=== PATIENT | female | born 1995 | race Caucasian/White ===

== ENCOUNTER 2017-01-03 07:35 | Emergency (ER) | payer BC ==
--- NOTE | 2017-01-03 08:01 | UC ---
FLU HPI - HPI Summary HPI Summary: cough, fever, ST, can't take a deep breath without coughing. Hx asthma, has been using her inhaler more than usual. States she can't take prednisone, that it messes up her periods and makes her bleed more. States she has been using her steroid inhaler as directed. Did not get a flu shot this year. - History of Current Complaint Chief Complaint: UCRespiratory Stated Complaint: SINUS/FEVER/SORE THROAT Time Seen by Provider: 01/03/17 07:50 Hx Obtained From: Patient Hx Last Menstrual Period: ~12/10/16 ?: No Onset/Duration: Sudden Onset, Lasting Hours, Still Present Severity Currently: Severe Severity Initially: Moderate Pain Intensity: 4 Pain Scale Used: 0-10 Numeric Associated Signs & Symptoms: Positive: Fever, Myalgia, Cough, Sore Throat, Nasal Congestion, Headache - Risk Factors Influenza Risk Factors: Chronic Medical or Immunosuppresive Condition - asthma - Allergy/Home Medications Allergies/Adverse Reactions: Allergies Allergy/AdvReac Type Severity Reaction Status Date / Time No Known Allergies Allergy Verified 01/03/17 07:43 Home Medications: Home Medications Ibuprofen TAB* [Motrin TAB* 600 MG] 600 mg PO Q6H PRN 01/03/17 [History Confirmed 01/03/17] PMH/Surg Hx/FS Hx/Imm Hx Respiratory History Of: Reports: Asthma - Surgical History Surgical History: None - Family History Known Family History: Negative: Cardiac Disease, Hypertension, Diabetes - Social History Occupation: Student Alcohol Use: Rare Substance Use Type: None Smoking Status (MU): Never Smoked Tobacco - Immunization History Most Recent Influenza Vaccination: Not the Season Review of Systems Constitutional: Fever, Chills Skin: Negative Eyes: Negative ENT: Sore Throat Respiratory: Cough Cardiovascular: Negative Gastrointestinal: Negative Genitourinary: Negative Motor: Negative Neurovascular: Negative Musculoskeletal: Myalgia Neurological: Headache Psychological: Negative All Other Systems Reviewed And Are Negative: Yes Physical Exam Triage Information Reviewed: Yes Appearance: Ill-Appearing, Pain Distress, Obese Vital Signs: Initial Vital Signs Temp 100.1 F 01/03/17 07:40 Pulse 134 01/03/17 07:40 Resp 18 01/03/17 07:40 BP 105/71 01/03/17 07:40 Pulse Ox 98 01/03/17 07:40 temp elevation and tachycardia noted Vital Signs Reviewed: Yes Eyes: Positive: Conjunctiva Clear ENT: Positive: Hearing grossly normal, Pharyngeal erythema, TMs normal Neck: Positive: Supple, Nontender, No Lymphadenopathy Respiratory: Positive: Lungs clear, No respiratory distress, Decreased breath sounds Cardiovascular: Positive: RRR, No Murmur, Pulses Normal, Brisk Capillary Refill Musculoskeletal: Positive: Strength Intact, ROM Intact Neurological: Positive: Alert, Muscle Tone Normal Psychological Exam: Normal Skin Exam: Normal Re-Evaluation - Re-Evaluation First Eval Re-Evaluation Time: 08:30 Change: Improved - increased aeration, more tachy, but states this is usual. Second Eval Re-Evaluation Time: 08:45 Change: Improved - feels ready to go, pulse 142 Flu Course/Dx - Course Course Of Treatment: influenza test A positive, but B invalid, so entire test invalid. Will not re-swab. Will treat empirically with tamiflu as pt is asthmatic and higher risk for complications such as pneumonia with influenza. - Differential Dx/Diagnosis Differential Diagnosis/HQI/PQRI: Influenza, Pneumonia, Upper Respiratory Infection Provider Diagnoses: influenza. asthmatic exacerbation Discharge - Discharge Plan Condition: Stable Disposition: HOME Prescriptions: Albuterol HFA INHALER* [Ventolin HFA Inhaler*] 1 - 2 puff INH Q4H PRN #1 mdi PRN Reason: Wheezing Budesonide/Formote 160/4.5(NF) [Symbicort 160/4.5 (NF)] 1 puff INH BID #1 mdi Oseltamivir CAP* [Tamiflu CAP*] 75 mg PO BID #9 cap Patient Education Materials: Influenza (ED), Asthma (ED) Forms: *School Release Referrals: Rohan Minor MD [Primary Care Provider] -
[2017-01-03] MEDS ORDERED: Albuterol 2.5 MG/3 ML NEB.SOL* (0.083%) INH ONE (08:08)
[2017-01-03] MEDS ORDERED: Albuterol 2.5 MG/3 ML NEB.SOL* (0.083%) ONE (08:11)
[2017-01-03] MEDS ORDERED: Acetaminophen TAB* 325 MG PO ONE (08:18)
[2017-01-03] MEDS ORDERED: Oseltamivir CAP* 75 MG PO ONE (08:18)
[2017-01-03 08:47] VITALS: BP 119/65
== END 2017-01-03 08:47 | disposition home or self-care (01) ==
LOC: UCCORT 07:35
DX: J11.1 Influenza due to unidentified influenza virus with other respiratory manifestations (principal); J45.901 Unspecified asthma with (acute) exacerbation; E66.9 Obesity, unspecified
CPT/HCPCS: 99213; A9270-GY; G0463

== ENCOUNTER 2017-11-06 10:18 | Emergency (ER) | payer BC ==
[2017-11-06 10:47] VITALS: BP 124/67
--- NOTE | 2017-11-06 11:30 | UC ---
Throat Pain/Nasal Caleb HPI - HPI Summary HPI Summary: Pt presents with sore throat that woke her at 4am. Pt with ear congestion and painful swallowing. No fever, chills, rash. No sob, cough. No drooling. painful swallowing + po fluid this am. Pt works in school, + strep contacts Pt's medications reviewed this visit - History of Current Complaint Chief Complaint: UCRespiratory Stated Complaint: ST Time Seen by Provider: 11/06/17 11:15 Hx Obtained From: Patient Hx Last Menstrual Period: 10/19/17 Onset/Duration: Sudden Onset, Lasting Hours Severity: Moderate - Allergies/Home Medications Allergies/Adverse Reactions: Allergies Allergy/AdvReac Type Severity Reaction Status Date / Time No Known Allergies Allergy Verified 11/06/17 10:42 PMH/Surg Hx/FS Hx/Imm Hx Previously Healthy: Yes - Surgical History Surgical History: None - Family History Known Family History: Negative: Cardiac Disease, Hypertension, Diabetes - Social History Occupation: Employed Full-time - school counselor Lives: With Family Alcohol Use: Occasionally Substance Use Type: None Smoking Status (MU): Never Smoked Tobacco - Immunization History Most Recent Influenza Vaccination: Not the 2017 Season Review of Systems Constitutional: Negative Skin: Negative Eyes: Negative ENT: Sore Throat Respiratory: Negative Cardiovascular: Negative Gastrointestinal: Negative Genitourinary: Negative All Other Systems Reviewed And Are Negative: Yes Physical Exam Triage Information Reviewed: Yes Appearance: Well-Appearing, No Pain Distress, Well-Nourished Vital Signs: Initial Vital Signs Temp 98 F 11/06/17 10:43 Pulse 105 11/06/17 10:43 Resp 20 11/06/17 10:43 BP 124/67 11/06/17 10:43 Pulse Ox 98 11/06/17 10:43 Vital Signs Reviewed: Yes Eye Exam: Normal Eyes: Positive: Conjunctiva Clear ENT: Positive: Hearing grossly normal, Nasal congestion, Uvula midline, Other - fluid left TM no erythema turbinates boggy + erythema, exudate R>L posterior pharynx uvula midline speaking full, easy sentences. Negative: Sinus tenderness Dental Exam: Normal Neck: Positive: Supple, Nontender. Negative: No Lymphadenopathy - + submandibular L>R Respiratory Exam: Normal Respiratory: Positive: Chest non-tender, Lungs clear, Normal breath sounds, No respiratory distress, No accessory muscle use Cardiovascular Exam: Normal Cardiovascular: Positive: RRR, No Murmur, Pulses Normal Abdominal Exam: Normal Abdomen Description: Positive: Nontender, No Organomegaly, Soft Bowel Sounds: Positive: Present Musculoskeletal Exam: Normal Musculoskeletal: Positive: Strength Intact Neurological Exam: Normal Neurological: Positive: Alert Psychological Exam: Normal Psychological: Positive: Normal Response To Family Skin Exam: Normal Throat Pain/Nasal Course/Dx - Course Course Of Treatment: Pt woke with sore throat this am. pt with strep exposure. secretion precaution. pt requesting liquid abx. cold foods//drink. hydrate. motrin/apap - Differential Dx/Diagnosis Provider Diagnoses: strep pharyngitis Discharge - Discharge Plan Condition: Stable Disposition: HOME Prescriptions: Amoxicillin PO (*) [Amoxicillin 400 MG/5 ML SUSP*] 800 mg PO BID #200 bottle Patient Education Materials: Strep Throat (ED) Forms: *Gen. Provider Communication, *Work Release Referrals: Rohan Minor MD [Primary Care Provider] - Additional Instructions: - Okay to alternate ibuprofen (Advil, Motrin) and Tylenol every 3 hours for pain. Take with food. Do NOT take for more than 4-5 days - Okay to gargle and spit every 4 hours as needed for pain - Stay well hydrated - frequent sips of cold fluids will be soothing to your throat (popsicles, jello, ice cream, ice water). Avoid excess caffeine until your symptoms have resolved. - Do not share eating, drinking utensils. Throw out your toothbrush when your symptoms resolved -Throat infections are spread by oral secretions - do not share eating or drinking utensils until you symptoms are resolved. Clean items that may get your secretions such as cell phones, ipads, computer mouse, television remotes After you h ave been on antibiotics for 48 hours, change your toothbrush and your pillowcase. - Contact your doctor to arrange a follow-up appointment as needed
== END 2017-11-06 11:51 | disposition home or self-care (01) ==
LOC: UCCORT 10:18
DX: J02.0 Streptococcal pharyngitis (principal)
CPT/HCPCS: 87651; 99212; G0463

== ENCOUNTER 2019-09-01 14:28 | Emergency (ER) | payer BC ==
--- NOTE | 2019-09-01 14:38 | UC ---
Throat Pain/Nasal Caleb HPI - HPI Summary HPI Summary: 23 yo female presents with sore throat. She tells me that on 08/29 she developed a sore throat that has been persistent since that time. She has been taking an OTC cold medication with mild relief for a few hours at a time, but symptoms return. Today her throat hurts worse. She is eating, drinking, and tolerating po well. She denies fever, chills, sinus symptoms, cough, rash, abdominal pain, n/v - History of Current Complaint Stated Complaint: ST,[place] Time Seen by Provider: 09/01/19 14:38 Hx Obtained From: Patient Hx Last Menstrual Period: april 02 Onset/Duration: Sudden Onset Severity: Moderate Pain Intensity: 5 Pain Scale Used: 0-10 Numeric - Allergies/Home Medications Allergies/Adverse Reactions: Allergies Allergy/AdvReac Type Severity Reaction Status Date / Time prednisone AdvReac Anxiety Verified 09/01/19 14:41 Home Medications: Home Medications Fluticasone NASAL SPRAY 50MCG* [Flonase NASAL SPRAY 50MCG*] 2 spray BOTH NARES DAILY 09/01/19 [History Confirmed 09/01/19] PMH/Surg Hx/FS Hx/Imm Hx Respiratory History: Asthma - Surgical History Surgical History: None - Family History Known Family History: Negative: Cardiac Disease, Hypertension, Diabetes - Social History Lives: With Family Alcohol Use: Weekly Substance Use Type: None Smoking Status (MU): Never Smoked Tobacco - Immunization History Most Recent Influenza Vaccination: Not the 2017 Season Review of Systems All Other Systems Reviewed And Are Negative: No Constitutional: Positive: Negative Skin: Positive: Negative Eyes: Positive: Negative ENT: Positive: Sore Throat Respiratory: Positive: Negative Cardiovascular: Positive: Negative Gastrointestinal: Positive: Negative Neurological: Positive: Negative Psychological: Positive: Negative Physical Exam - Summary Physical Exam Summary: GENERAL: NAD. WDWN. No pain distress. SKIN: No rashes, sores, lesions, or open wounds. HEENT: Head: AT/NC Eyes: EOM intact. Conjunctiva clear without inflammation or discharge. Ears: Hearing grossly normal. TMs intact, no bulging, erythema, or edema. Nose: Nasal mucosa pink and moist. NTTP maxillary and frontal sinus. Throat: Posterior oropharynx with mild erythema and scant white exudates. Uvula midline. NECK: Supple. Mild tonsillar LAD NTTP CHEST: CTAB. No accessory muscle use. Breathing comfortably and in no distress. CV: RRR. Pulses intact. Cap refill <2seconds NEURO: Alert. PSYCH: Age appropriate behavior. Triage Information Reviewed: Yes Vital Signs: Vital Signs: Temp Pulse Resp BP Pulse Ox 98.3 F 105 16 123/84 100 09/01/19 14:39 09/01/19 14:39 09/01/19 14:39 09/01/19 14:39 09/01/19 14:39 Laboratory Tests 09/01/19 14:39 Group A Strep Rapid Negative Vital Signs Reviewed: Yes Throat Pain/Nasal Course/Dx - Course Course Of Treatment: POC strep negative. Discussed viral vs bacterial causes with the pt and she prefers to be on anbx at this time. - Differential Dx/Diagnosis Provider Diagnosis: Pharyngitis Discharge ED - Sign-Out/Discharge Documenting (check all that apply): Patient Departure All imaging exams completed and their final reports reviewed: No Studies - Discharge Plan Condition: Stable Disposition: HOME Prescriptions: Amoxicillin PO (*) [Amoxicillin 875 MG (*)] 875 mg PO BID #14 tab Patient Education Materials: Pharyngitis (ED) Referrals: Rohan Minor MD [Primary Care Provider] - Additional Instructions: If you develop a fever, shortness of breath, chest pain, new or worsening symptoms - please call your PCP or go to the ED immediately. Continue your over the counter medication for pain relief - Billing Disposition and Condition Condition: STABLE Disposition: Home
[2019-09-01 14:41] VITALS: BP 123/84
== END 2019-09-01 14:56 | disposition home or self-care (01) ==
LOC: UCCORT 14:28
DX: J02.9 Acute pharyngitis, unspecified (principal); J45.909 Unspecified asthma, uncomplicated; Z88.8 Allergy status to other drugs, medicaments and biological substances
CPT/HCPCS: 87651; 99212; G0463